=== PATIENT | male | born 1975 | race Caucasian/White ===

== ENCOUNTER 2016-03-28 23:43 | Emergency (ER) | payer OTHER ==
[~2016-03-28] VITALS: Ht 193 cm; Wt 97.7 kg
[~2016-03-28 23:43] MED LIST: ALBU18HF INH; ARIP15TA2 PO; DEP250A PO; MS15TCR PO; OXYC15TA45 PO; SERT100T9 PO; ZOLP10TA5 PO
[2016-03-28 23:57] VITALS: BP 143/80; PULSE 72; RESP 18; O2SAT 98
--- NOTE | 2016-03-29 00:05 | ED.REPORT ---
HPI-Abd Pain M 40 and Over Date of Service Mar 29, 2016 ED Provider: Arnaud Hung MD Patient is a 41 year old male with bipolar disorder and recent vasectomy on the who presents to the ED with nausea, vomiting, and diarrhea for the past 2 days. Patient states that he is unable to keep down his medications, including Depakote, Sertraline, Cyclobenzaprine, MS Contin, and Percocet. He reports associated chills and fever (he is afebrile in the ED). Patient also reports having a cough, with pain to his back and groin when he coughs. He denies abdominal pain, rash, chest pain, or shortness of breath. Nursing Notes Stated Complaint: FEVER, VOMITING, DIARRHEA Chief Complaint: Male Abdominal Pain Nursing Notes Reviewed: Yes Allergies: Coded Allergies: Adhesives (Verified Allergy, Unknown, 03/29/16) meclizine (Verified Allergy, Unknown, 03/29/16) Scheduled Aripiprazole (Abilify) 15 Mg Tablet 15 MG PO AM Divalproex (Rg BOWER) 250 Mg Tabec 250 MG PO AM Divalproex DR (Rg BOWER) 250 Mg Tablet 500 MG PO HS Swallowed whole without chewing to avoid local irritation of the mouth and throat. Morphine Sulfate ER (MS Contin) 15 Mg Tablet.er 15 MG PO BID Sertraline HCl (Sertraline) 100 Mg Tablet 50 MG PO DAILY Scheduled PRN Albuterol Sulfate (Ventolin HFA Inhaler) 200 Puff/18 Gm Inhaler 1 PUFF INH Q4 PRN PRN For Wheezing Ondansetron ODT (Ondansetron ODT) 8 Mg Tab.rapdis 8 MG PO QID PRN PRN For Nausea Oxycodone (Roxicodone) 15 Mg Tablet 15 MG PO Q6H PRN PRN For Pain Oxycodone (Roxicodone) 15 Mg Tablet 15 MG PO Q3 HR PRN PRN For Pain Zolpidem (Zolpidem) 10 Mg Tablet 10 MG PO HS PRN PRN For Insomnia General Time Seen by MD: 00:05 Chief Complaint Diarrhea moderate, Nausea, Other (vomiting) Hx Obtained From: Patient Arrived By: Walk-in Sudden in Onset?: No Onset Occurred: 2 days ago Symptom Duration: Since onset Severity: Current: No pain currently Severity: Maximum: No pain Recent Healthcare: No recent doctor visit, No recent hospitalization Similar Sx Previous: No Past Medical History Past Medical History Suicidal attempt with gun Bipolar Depression Anxiety Chronic back pain Psychiatric admission for suicidal attempt Past Surgical History Thumb surgery vasectomy Reports: Back/neck surgery Smoking History Unknown if Ever Smoker Social History +Alcohol use Other Social History: Local resident Occupation [employer] Status Independent Review of Systems Constitutional: Reports: Chills, Fever Respiratory: Denies: Shortness of breath Cardiovascular: Denies: Chest pain GI: Reports: Diarrhea, Nausea, Vomiting, Denies: Abdominal pain Complete sys rev & neg: except as marked. Skin: Denies Rash Physical Exam Initial Vital Signs Vital Signs (First) Date Time Temp Pulse Resp B/P Pulse Ox O2 Delivery O2 Flow Rate FiO2 03/28/16 23:57 36.7 72 18 143/80 98 Room Air Initial VS: Reviewed Head / Eyes: Atraumatic, Normocephalic, PERRL ENT: Conjunctiva normal, No scleral icterus Neck: Supple, Full range of motion Extremities: Vascular intact, Neuro intact Skin: Warm, Dry, No cyanosis Neurologic: Alert, Oriented, Nonfocal Psychiatric: Mood/affect normal, Behavior normal, Normal thought content General/Constitutional: Awake, Alert, No acute distress dry appearing Respiratory / Chest: Breath sounds NL, Breath sounds = bilat, No respiratory distress, No rales, No rhonchi, No wheezing Cardiovascular: Heart rate NL, Regular rhythm, Heart sounds NL, No murmurs Abdomen: Soft, Non-tender, No hernia Bowel Sounds / Distention: Positive: Bowel sounds hyperactive Back: Painless range of motion Interpretation & Diagnostics Lab Results Interpretation Result Diagram: 03/29/16 0037 03/29/16 0037 Test 03/29/16 00:37 White Blood Count 3.0th/mm3 (3.8-10.1) Red Blood Count 4.60mil/mm3 (4.40-5.80) Hemoglobin 13.5g/dL (13.8-17.2) Hematocrit 39.6% (41.0-50.0) Mean Corpuscular Volume 86.1fL (81-100) Mean Corpuscular Hemoglobin 29.3pg (27.0-35.0) Mean Corpuscular Hemoglobin Concent 34.1% (32.0-37.0) Red Cell Distribution Width 12.4% (12.3-15.4) Platelet Count 146bil/L (150-400) Neutrophils (%) (Auto) 61.0% (40-74) Lymphocytes (%) (Auto) 27.8% (14-46) Monocytes (%) (Auto) 10.3% (4-12) Eosinophils (%) (Auto) 0.3% (0-5) Basophils (%) (Auto) 0.3% (0-3) Sodium Level 138mEq/L (134-144) Potassium Level 3.5mEq/L (3.5-5.2) Chloride Level 100mEq/L (97-108) Carbon Dioxide Level 22mmol/L (18-29) Blood Urea Nitrogen 17mg/dL (6-24) Creatinine 0.95mg/dL (0.76-1.27) Estimat Glomerular Filtration Rate 92mL/min (>59) Glucose Level 96mg/dL (60-99) Calcium Level 8.7mg/dL (8.5-10.1) Magnesium Level 2.3mg/dL (1.6-2.6) Total Bilirubin 0.2mg/dL (0.0-1.2) Aspartate Amino Transf (AST/SGOT) 43U/L (0-50) Alanine Aminotransferase (ALT/SGPT) 66U/L (0-44) Alkaline Phosphatase 84U/L (25-150) Total Protein 7.2g/dL (6.4-8.4) Albumin 4.3g/dL (3.4-5.0) Lipase 18U/L (13-60) Hold Ayala Top Tube Received (Received) Re-Eval/Medical Decision Med Decision/Clinical Course 41-year-old acute gastroenteritis and vomiting, made worse by inability keep down his chronic opioids and some mild withdrawal. He is improved here after IV fluids and Zofran, is discharged home, taking by mouth fluids, and able to take his by mouth meds. Discharged in stable condition. Source of Hx: Old records Time of Eval: 02:50 Patient Status: Condition improved Re-Evaluation/Progress Note: Patient feels improved. Discussed lab results. Patient understands and agrees with the plan to be discharged home. Discharge instructions and follow-up discussed. All questions were addressed. Return to the ED warnings given. Counseled Regarding: Diagnosis, Lab results, Need for follow-up, When/why to return to ED Discharge & Departure Primary Impression: Gastroenteritis Disposition: Home Vital Signs - All Vital Signs Date Time Temp Pulse Resp B/P Pulse Ox O2 Delivery O2 Flow Rate FiO2 03/29/16 03:02 73 16 134/58 97 Room Air 03/28/16 23:57 36.7 72 18 143/80 98 Room Air )( All Prior VS Reviewed: Yes Condition: Stable Patient Instructions: Gastroenteritis (ED) Additional Instructions: Ondansetron four times daily if needed for nausea and vomiting. Drink clear fluids such as Gatorade or Powerade, and advance her diet slowly as you tolerate. Return if unable to control your vomiting. Resume your prescribed medicines. Follow-up with your doctor in the office. Referrals: Kelly William MD (PCP) Scribe Attestation Portions of this note were transcribed by Reyna Hope. I, Dr. Hung personally performed the history, physical exam and medical decision-making; I reviewed and confirmed the accuracy of the information in the transcribed note. Signed by: Juanis Hoyt, 03/29/2016 0251 copies to: Kelly William MD, Christopher W MD Mar 29, 2016 00:05 Reyna Hope Mar 29, 2016 00:14
[2016-03-29] MEDS ORDERED: 0.9% Sodium Chloride 1,000 ML IV ONE ×2 (00:17→00:20)
[2016-03-29] MEDS ORDERED: Ondansetron 2 mg/mL 2 mL Inj IVPUSH ONE (00:20)
[2016-03-29] MEDS ORDERED: Pantoprazole 4 mg/mL 10 mL Inj IVPUSH ONE (00:20)
[2016-03-29] MEDS ORDERED: _Ondansetron ODT 4 mg Tablet PO PRN (00:30)
[2016-03-29 00:45] LABS: BASOPHILS % (AUTO) 0.3 % (0-3); EOSINOPHILS % (AUTO) 0.3 % (0-5); MONOCYTES % (AUTO) 10.3 % (4-12); Mean Corpuscular Hemoglobin 29.3 pg (27.0-35.0); Mean Corpuscular Volume 86.1 fL (81-100); Platelet Count 146 bil/L (150-400)
[2016-03-29 01:09] LABS: Magnesium 2.3 mg/dL (1.6-2.6)
[2016-03-29] MEDS ORDERED: ONDA8TAB10 PO (02:37)
[2016-03-29 03:02] VITALS: BP 134/58; PULSE 73; RESP 16; O2SAT 97
== END 2016-03-29 03:02 | disposition home or self-care (01) ==
LOC: SED 23:43
DX: K52.9 Noninfective gastroenteritis and colitis, unspecified (principal)
CPT/HCPCS: 36415; 80053; 83690; 83735; 85025; 96361; 96374; 96375; 96376; 99284; J2405; J7030

== ENCOUNTER 2016-03-29 17:11 | Emergency (ER) | payer OTHER ==
[~2016-03-29] VITALS: Ht 193 cm; Wt 95.5 kg
[~2016-03-29 17:11] MED LIST changes: +ONDA8TAB10 PO
[2016-03-29 17:27] VITALS: BP 146/65; PULSE 87; RESP 18; O2SAT 97
--- NOTE | 2016-03-29 18:06 | ED.REPORT ---
HPI-General Illness Date of Service Mar 29, 2016 ED Provider: Efra Ortiz DO A 41 year old male with a medical history including chronic back pain, anxiety, bipolar disorder, and depression presents to the ED with diarrhea onset four days ago. The patient also reports abdominal pain. The stool sample given just prior to arrival is red and watery. The patient takes chronic opiate pain medication and is concerned about withdrawal. His last meal was yesterday. The patient was seen in the ED just after midnight today, diagnosed with gastroenteritis, and discharged with instructions to use ondansetron for nausea. Nursing Notes Stated Complaint: SHORTNESS OF BREATH Chief Complaint: Male Abdominal Pain Nursing Notes Reviewed: Yes Allergies: Coded Allergies: Adhesives (Verified Allergy, Unknown, 03/29/16) meclizine (Verified Allergy, Unknown, 03/29/16) Scheduled Aripiprazole (Abilify) 15 Mg Tablet 15 MG PO AM Divalproex DR (Depakote DR) 250 Mg Tabec 250 MG PO AM Divalproex DR (Depakote DR) 250 Mg Tablet 500 MG PO HS Swallowed whole without chewing to avoid local irritation of the mouth and throat. Morphine Sulfate ER (MS Contin) 15 Mg Tablet.er 15 MG PO BID Sertraline HCl (Sertraline) 100 Mg Tablet 50 MG PO DAILY Scheduled PRN Albuterol Sulfate (Ventolin HFA Inhaler) 200 Puff/18 Gm Inhaler 1 PUFF INH Q4 PRN PRN For Wheezing Ondansetron ODT (Ondansetron ODT) 8 Mg Tab.rapdis 8 MG PO QID PRN PRN For Nausea Oxycodone (Roxicodone) 15 Mg Tablet 15 MG PO Q6H PRN PRN For Pain Oxycodone (Roxicodone) 15 Mg Tablet 15 MG PO Q3 HR PRN PRN For Pain Zolpidem (Zolpidem) 10 Mg Tablet 10 MG PO HS PRN PRN For Insomnia General Time Seen by MD: 18:06 Chief Complaint Diarrhea Hx Obtained From: Patient Arrived By: Walk-in Sudden in Onset?: Yes Onset Occurred: 4 days ago Symptom Duration: Since onset Location: : Abdomen Quality: Painful Severity: Current: Moderate Severity: Maximum: Moderate Associated with: Reports: Abdominal pain, Denies: Fever Pertinent Negative: Relieved by nothing Context Related History: Reports Psychiatric history Recent Healthcare: Recent doctor visit, Previous diagnosis, Prior workup Similar Sx Previous: Yes Past Medical History Past Medical History Suicidal attempt with gun Bipolar Depression Anxiety Chronic back pain Psychiatric admission for suicidal attempt Past Surgical History Thumb surgery Vasectomy Reports: Back/neck surgery Smoking History Unknown if Ever Smoker Social History + Alcohol use Other Social History: Local resident Occupation Ambulatory Status Independent Review of Systems Full Review of Systems Constitutional: Denies: Fever Respiratory: Reports: Non-productive cough, Wheezing GI: Reports: Abdominal pain, Diarrhea, Hematochezia Complete sys rev & neg: except as marked. Physical Exam Vital Signs Vital Signs Date Time Temp Pulse Resp B/P Pulse Ox O2 Delivery O2 Flow Rate FiO2 03/30/16 00:47 37.2 73 18 114/59 98 Room Air 03/29/16 22:13 37.1 76 18 127/54 98 Room Air 03/29/16 20:22 85 16 123/54 97 Room Air 03/29/16 20:15 80 20 123/54 99 Room Air 03/29/16 17:27 36.8 87 18 146/65 97 Room Air Initial VS: Reviewed Head / Eyes: Atraumatic, Normocephalic Neck: Supple, Full range of motion Respiratory: Breath sounds normal, Clear to auscultation, No respiratory distress Cardiovascular: Regular rate & rhythm, Heart sounds normal Abdomen / GI: Soft, Non-tender Skin: Warm, Dry Neurologic: Alert, Oriented, Nonfocal Psychiatric: Mood/affect normal, Behavior normal, Normal thought content General/Constitutional: Awake, Alert ENT: Airway patent Mouth: Positive: Mucous membranes dry Interpretation & Diagnostics URINE DIPSTICK: 1.020 sp gravity 5 pH Normal Glucose Normal Urobilinogen + Ketones Otherwise Normal Lab Results Interpretation Result Diagram: 03/29/16 1745 03/29/16 1745 Test 03/29/16 17:45 03/29/16 18:09 03/29/16 21:30 03/29/16 23:02 White Blood Count 3.9th/mm3 (3.8-10.1) Red Blood Count 4.87mil/mm3 (4.40-5.80) Hemoglobin 14.3g/dL (13.8-17.2) Hematocrit 41.5% (41.0-50.0) Mean Corpuscular Volume 85.2fL (81-100) Mean Corpuscular Hemoglobin 29.4pg (27.0-35.0) Mean Corpuscular Hemoglobin Concent 34.5% (32.0-37.0) Red Cell Distribution Width 12.4% (12.3-15.4) Platelet Count 179bil/L (150-400) Sodium Level 142mEq/L (134-144) Potassium Level 3.5mEq/L (3.5-5.2) Chloride Level 102mEq/L (97-108) Carbon Dioxide Level 20mmol/L (18-29) Blood Urea Nitrogen 13mg/dL (6-24) Creatinine 1.00mg/dL (0.76-1.27) Estimat Glomerular Filtration Rate 87mL/min (>59) Glucose Level 101mg/dL (60-99) Calcium Level 9.2mg/dL (8.5-10.1) Total Bilirubin 0.3mg/dL (0.0-1.2) Aspartate Amino Transf (AST/SGOT) 38U/L (0-50) Alanine Aminotransferase (ALT/SGPT) 58U/L (0-44) Alkaline Phosphatase 86U/L (25-150) Total Protein 7.6g/dL (6.4-8.4) Albumin 4.5g/dL (3.4-5.0) Magnesium Level 2.2mg/dL (1.6-2.6) Lipase 28U/L (13-60) D-Dimer < 0.5mg/L (<0.50) Troponin T 0.010ug/L (0.0-0.011) Hold Urine Received (Received) X-Ray Chest Interpretation Chest Xray Interpretation: IMPRESSION: Left basilar pneumonia. Dictated by: Boni Reese M.D. on 03/29/2016 at 21:58 View: AP & lat Interpretation / Wet Read by: Interpret - Radiologist Re-Eval/Medical Decision Med Decision/Clinical Course 41-year-old male comes in with diarrhea and cough. He is found to have left lower lobe pneumonia and dehydration. He will be treated with a beta lactam and macrolide. His pneumonia severity index score is commensurate with outpatient treatment. Stool cultures/PCR have been obtained. If he has C. difficile or other pathogens any specific treatments we can move on this as well. He was medicated me looked great. He was found that normal vitals at discharge. No indicators of sepsis. We will plan for recheck tomorrow. Routine sedative warnings were given. Source of Hx: Old records Time of Eval: 20:54 Patient Status: Condition improved, Pain improved Re-Evaluation/Progress Note: Discussed with patient lab results and diagnosis. His pain has improved but he is now complaining of a cough and is wheezing on physical exam. Time of Eval: 23:53 Patient Status: Condition improved Re-Evaluation/Progress Note: Discussed with patient x-ray results, diagnosis, and plan for discharge. Follow-up and return to the ER instructions given. Patient agrees with plan for care and all questions were addressed. Counseled Regarding: Diagnosis, Lab results, Need for follow-up, When/why to return to ED Discharge & Departure Primary Impression: Gastroenteritis Additional Impression: Pneumonia Pneumonia type: due to unspecified organism Laterality: left Lung location : lower lobe of lung Qualified Code: J18.9 - Pneumonia, unspecified organism Disposition: Home Discharge Condition All VS Reviewed: Yes Condition: Stable Patient Instructions: Gastroenteritis (ED) Additional Instructions: Thank you for entrusting us with your care. Your stool PCR results will be available tomorrow. Call the ER after 10 am for these results. Your labs are otherwise reassuring. Take your medication as directed. Do not drink alcohol or drive tonight as you have been given sedating medication. Call your primary care provider tomorrow for a follow-up appointment. Return to the ER with any new or worsening symptoms. The chest x-ray shows that you have pneumonia. Take amoxicillin 3 times daily for 7 days. Finish the Z-Alfred. It is important that we have the results of your stool samples. If you are unable to give a stool sample tonight, you need to have one tested by your primary care physician. I would like you rechecked tomorrow or the following day. Referrals: Kelly William MD (PCP) Juanis Attestation Portions of this note were transcribed by Georgette Smith. I, Dr. Ortiz, personally performed the history, physical exam, and medical decision-making; I reviewed and confirmed the accuracy of the information in the transcribed note. Signed by: Juanis Martinez, 03/30/2016, 0040 copies to: Kelly William MD, Todd P DO Mar 29, 2016 18:06 GEORGETTE SMITH Mar 29, 2016 18:13
[2016-03-29 18:14] LABS: Mean Corpuscular Hemoglobin 29.4 pg (27.0-35.0); Mean Corpuscular Volume 85.2 fL (81-100)
[2016-03-29] MEDS ORDERED: HYDROmorphone 0.5 mg/0.5 mL iSecure Syringe IVPUSH PRN (18:40)
[2016-03-29] MEDS ORDERED: 0.9% Sodium Chloride 1,000 ML IV ONE (18:40)
[2016-03-29] MEDS ORDERED: 0.9% Sodium Chloride 1,000 ML IV SCH (18:45)
[2016-03-29] MEDS: Ondansetron 2 mg/mL 2 mL Inj IVPUSH PRN (18:57)
[2016-03-29 19:00] LABS: Magnesium 2.2 mg/dL (1.6-2.6)
[2016-03-29 20:15] VITALS: BP 123/54; PULSE 80; RESP 20; O2SAT 99
[2016-03-29 20:22] VITALS: BP 123/54; PULSE 85; RESP 16; O2SAT 97
--- NOTE | 2016-03-29 22:02 | DRSVH ---
PROCEDURE: X-RAY CHEST, TWO VIEWS ([id number]) INDICATIONS: cough TECHNIQUE: 2 views of the chest were acquired. COMPARISON: [facility] [place], CR, CHEST 2VW, 08/29/2008, 11:01. FINDINGS: Surgical changes and devices: Lower cervical spine fusion. Lungs and pleura: Left basilar infiltrate suspicious for pneumonia. No pleural effusions or pneumoth orax. Mediastinum: Mediastinal contours are normal. Heart size is normal. Bones and chest wall: No suspicious bony abnormalities. Soft tissues appear unremarkable. IMPRESSION: Left basilar pneumonia. Dictated by: Boni Reese M.D. on 03/29/2016 at 21:58 Approved by: Boni Reese M.D. on 03/29/2016 at 22:00
[2016-03-29 22:13] VITALS: BP 127/54; PULSE 76; RESP 18; O2SAT 98
[2016-03-29] MEDS ORDERED: cefTRIAXone Inj 2,000 MG in Dextrose 5% Minibag Plus 50 ML IV SCH (22:40)
[2016-03-30] MEDS: Ondansetron 2 mg/mL 2 mL Inj IVPUSH PRN (00:39)
[2016-03-30 00:47] VITALS: BP 114/59; PULSE 73; RESP 18; O2SAT 98
== END 2016-03-30 00:58 | disposition home or self-care (01) ==
LOC: SED 17:11
DX: K52.9 Noninfective gastroenteritis and colitis, unspecified (principal); J18.9 Pneumonia, unspecified organism; F31.9 Bipolar disorder, unspecified; Z88.8 Allergy status to other drugs, medicaments and biological substances
CPT/HCPCS: 36415; 71020; 80053; 83690; 83735; 84484; 85027; 85379; 87507; 96361; 96365; 96375; 96376; 99285; J0696; J1170; J2405; J7030